=== PATIENT | female | born 1980 | race American Indian/Alaskan Native ===

== ENCOUNTER 2018-04-22 06:18 | Emergency (ER) | payer SELFPAY ==
[2018-04-22 06:32] VITALS: BP 142/96
[2018-04-22] MEDS ORDERED: DELTASONE PO ONE (07:39)
[2018-04-22] MEDS ORDERED: TORADOL IM ONE (07:39)
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
== END 2018-04-22 08:57 | disposition home or self-care (01) ==
LOC: ED 06:18
DX: R68.84 Jaw pain (principal); F17.200 Nicotine dependence, unspecified, uncomplicated; Z90.89 Acquired absence of other organs; V49.59XA Passenger injured in collision with other motor vehicles in traffic accident, initial encounter; Y93.89 Activity, other specified; Y92.410 Unspecified street and highway as the place of occurrence of the external cause; Y99.8 Other external cause status
CPT/HCPCS: 70150; 96372; 99283; J1885; J7512

== ENCOUNTER 2019-04-07 08:47 | Emergency (ER) | payer OTHER ==
[2019-04-07 09:01] VITALS: BP 156/92
--- NOTE | 2019-04-07 09:57 | Emergency Department Report ---
Chief Complaint: Extremity Injury, Lower Stated Complaint: (R) LEG PAIN Time Seen by Provider: 04/07/19 09:45 - HPI History of Present Illness: Patient is a 38-year-old F [place] female who states she has had pain in the right lower back radiating down to the right leg off and on for the past 3 months. She denies any trauma. Patient states the pain waxes and wanes but it sometimes becomes unbearable. States pain today is 10 out of 10 is worse with movement better with rest. She denies any fever trauma bowel or bladder dysfunction. - ROS Review of Systems: All of the systems are reviewed and are negative - Exam Vital Signs: Vital Signs 04/07/19 08:59 Temperature 98.1 F Pulse Rate 101 H Respiratory 18 Rate Blood Pressure 156/92 O2 Sat by Pulse 100 Oximetry Physical Exam: Patient is alert and oriented x3 in no acute distress. Patient has tenderness palpation to the right lower back. She does have full range of motion. MSE screening note: Focused history and physical exam performed. Due to findings the following was ordered: ED Medical Decision Making - Medical Decision Making Patient likely with chronic sciatica. Patient does not have a acute life- threatening emergency at this time. Patient is been referred to Dr. Sherwood office for pain management today and is been given orthopedic follow-up. [place] [facility] [place]ression: Sciatica Qualifiers: Laterality: right Qualified Code(s): M54.31 - Sciatica, right side Disposition: Z-07 MED SCREENING EXAM-LEFT Is pt being admited?: No Does the pt Need Aspirin: No Condition: Stable Instructions: Lumbar Radiculopathy (ED) Additional Instructions: Please see Dr. Sherwood today who could potentially manage her pain and arrange follow-up visits Referrals: PRIMARY CARE, [Primary Care Provider] - 3-5 Days Time of Disposition: 09:55
== END 2019-04-07 10:04 | disposition left against medical advice (07) ==
LOC: ED 08:47
DX: M54.31 Sciatica, right side (principal); Z88.2 Allergy status to sulfonamides
CPT/HCPCS: 99281